=== PATIENT | male | born 1965 | race Two or more races ===

== ENCOUNTER 2019-02-17 16:01 | Emergency (ER) | payer MEDICAID ==
[~2019-02-17] VITALS: Ht 170.2 cm; Wt 90.7 kg
[2019-02-17 16:08] VITALS: BP 140/96
--- NOTE | 2019-02-17 16:15 | NUR ---
AT BEDSIDE FOR EVAL.
[2019-02-17] MEDS ORDERED: KETOROLAC TROMETHAMINE INJ 60 MG/2 ML VIAL IM ONE (16:21)
[2019-02-17] MEDS: KETOROLAC TROMETHAMINE INJ 60 MG/2 ML VIAL IM ONE ×2 (16:27→16:43)
[2019-02-17] MEDS ORDERED: IBUPROFEN 600 MG TABLET PO ONE ×2 (16:44→17:00)
--- NOTE | 2019-02-17 16:49 | NUR ---
Patient discharged to home in stable condition. Written and verbal after care instructions given. Patient verbalizes understanding of instruction.
== END 2019-02-17 17:09 | disposition home or self-care (01) ==
LOC: ER 16:05
DX: G89.29 Other chronic pain (principal); M25.562 Pain in left knee; I10 Essential (primary) hypertension; Z88.0 Allergy status to penicillin
CPT/HCPCS: J1885

== ENCOUNTER 2022-03-19 18:32 | Emergency (ER) | payer BC, MEDICAID ==
[~2022-03-19] VITALS: Ht 172.7 cm; Wt 83.9 kg
--- NOTE | 2022-03-19 19:05 | NUR ---
1945 BIBSELF FROM HOME C/O THIGH THROBBING PAIN X 1 HOUR. DENIES TRAUMA. PT A/OX4. TOLERATING R/A WELL WITH NO RESP DISTRESS. SAFETY MEASURES IN PLACE.
[2022-03-19] MEDS ORDERED: KETOROLAC TROMETHAMINE INJ 30 MG/ML VIAL ONE (19:52)
[2022-03-19] MEDS ORDERED: KETOROLAC TROMETHAMINE INJ 60 MG/2 ML VIAL IM ONE (20:00)
--- NOTE | 2022-03-19 21:11 | NUR ---
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
[2022-03-19] MEDS ORDERED: LIDOCAINE 5% (PATCH) 1 EA PATCH TP SCH (21:30)
[2022-03-19] MEDS ORDERED: LIDO700A30 TP (22:17)
[2022-03-19] MEDS ORDERED: NAPR-1164 PO (22:17)
--- NOTE | 2022-03-19 22:22 | NUR ---
Patient discharged to home in stable condition. Written and verbal after care instructions given. Patient verbalizes understanding of instruction.
[2022-03-19 22:23] VITALS: BP 130/88
[2022-03-19] MEDS ORDERED: LIDOCAINE 5% (PATCH) 1 EA PATCH TP ONE (22:30)
== END 2022-03-19 23:09 | disposition home or self-care (01) ==
LOC: ER 18:35
DX: S76.911A Strain of unspecified muscles, fascia and tendons at thigh level, right thigh, initial encounter (principal); I10 Essential (primary) hypertension; Z88.0 Allergy status to penicillin; Z79.899 Other long term (current) drug therapy; X58.XXXA Exposure to other specified factors, initial encounter; Y93.9 Activity, unspecified; Y92.89 Other specified places as the place of occurrence of the external cause; Y99.8 Other external cause status
CPT/HCPCS: 99283; 96372; 73552; J1885